=== PATIENT | male | born 2000 | race Native Hawaiian/Other Pacific Islander ===

== ENCOUNTER 2019-09-03 18:00 | Emergency (ER) | payer BC, OTHER ==
[~2019-09-03] VITALS: Ht 182 cm; Wt 110.0 kg
--- NOTE | 2019-09-03 18:56 | ED Integumentary General ---
General Chief Complaint: Laceration Stated Complaint: R HAND LAC Nursing Triage Note: THE PT IS AMBULATORY TO THE ROOM WITHOUT DIFFICULTY. NO DISTRESS IS SEEN ON ARRIVAL. LOC IS NORMAL FOR THE PT. THE PT HAS A LECERATION TO HIS LEFT HAND. Source: patient, other (friend) Exam Limitations: no limitations History of Present Illness Date Seen by Provider: Sep 03, 2019 Time Seen by Provider: 18:56 Initial Comments 19-year-old male patient presents with complaints of a laceration to the right hand. Patient states he was running to the yard playing with a friend's dog when he didn't see the chin link fence. Reports hitting his hand on the chain link fence causing a laceration. Denies any numbness, weakness, or hand pain. Location Injury Occurred: outside friend's home Timing/Duration: just prior to arrival Location: hands (right hand) Possible Cause: other (reports hitting the hand on a chain link fence) Modifying Factors: worse with other (bleeding improved with compression) Allergies and Home Medications Allergies Coded Allergies: No Known Drug Allergies (Unverified , 09/03/19) Patient Home Medication List Home Medication List Reviewed: Yes Review of Systems Review of Systems Constitutional: no symptoms reported Respiratory: no symptoms reported Cardiovascular: no symptoms reported Musculoskeletal: No joint pain, No joint swelling Skin: see HPI, other (laceration to the right hand) Psychiatric/Neurological: Denies Numbness, Denies Paresthesia, Denies Tingling, Denies Weakness All Other Systems Reviewed Negative Unless Noted: Yes (Negative excepted noted.) Past Sflqwwq-Vzjdgw-Grcwyu Hx Past Med/Social Hx: Reviewed Nursing Past Med/Soc Hx Patient Social History Alcohol Use: Occasionally Uses Recreational Drug Use: No Smoking Status: Never a Smoker Recent Foreign Travel: No Contact w/Someone Who Travel: No Recent Infectious Disease Expo: No Immunizations Up To Date Tetanus Booster (TDap): More than 5yrs PED Vaccines UTD: Yes Past Medical History Cardiac: No Neurological: No Gastrointestinal: No Musculoskeletal: No Integumentary: Yes Eczema Family Medical History Reviewed Nursing Family Hx No Pertinent Family Hx Physical Exam Vital Signs Vital Signs - First Documented 09/03/19 18:09 Temp 37.0 Pulse 74 Resp 16 B/P (MAP) 144/82 (102) Capillary Refill : Less Than 3 Seconds General Appearance: WD/WN, no apparent distress Cardiovascular: normal peripheral pulses, regular rate, rhythm, no murmur Respiratory: lungs clear, normal breath sounds, no respiratory distress, no accessory muscle use Extremities: normal range of motion, non-tender, normal capillary refill, other (4 cm laceration involving skin to the right posterior third web spacing (between the third and fourth fingers). Subcutaneous tissue and intact veins are visible in the bed of the wound. ) Neurologic/Psychiatric: no motor/sensory deficits, alert, normal mood/affect, oriented x 3 Skin: normal color, warm/dry, other (4 cm laceration involving skin to the right posterior third web spacing (between the third and fourth fingers). Subcutaneous tissue and intact veins are visible in the bed of the wound. ) Procedures/Interventions Wound Location: Upper Extremities (right hand) Wound Length (cm): 4 Wound's Depth, Shape: superficial, linear Wound Explored: clean Betadine Prep?: Yes (and scrubbed vigorously with chlorhexidine and sterile saline) Anesthesia: 1% Lidocaine Volume Anesthetic (ccs): 2 Suture: Prolene (4-0 Prolene used to reapproximate skin edges), Vicryl (3-0 Vicryl used to reapproximate subcutaneous tissue) Number of Sutures: 6 Layer Closure?: 2 Number Deep Layer Sutures: 2 Sterile Dressing Applied?: Yes Progress Blood loss minimal. Patient tolerated the procedure well. Patient placed in a Colle's aluminum splint. Progress/Results/Core Measures Results/Orders My Orders Orders - ESTEPHANIA MARTINEZ Dipht,Pertuss(Acell),Tet Adult (Boostrix (09/03/19 19:15) Lidocaine 1% Inj 20 Ml (Xylocaine 1% Inj (09/03/19 19:15) Medications Given in ED Current Medications Medications Dose Ordered Sig/Braden Route Start Time Stop Time Status Last Admin Dose Admin Diphtheria/ Tetanus/Acell Pertussis 0.5 ml ONCE ONCE IM 09/03/19 19:15 09/03/19 19:16 DC 09/03/19 19:16 0.5 ML Lidocaine HCl 20 ml ONCE ONCE INJ 09/03/19 19:15 09/03/19 19:16 DC 09/03/19 19:12 20 ML Vital Signs/I&O 09/03/19 18:09 Temp 37.0 Pulse 74 Resp 16 B/P (MAP) 144/82 (102) Blood Pressure Mean: 102 Departure Communication (Admissions) Patient seen, evaluated, and wound repair performed. Plan for discharge to home. Patient to return in 10 days for suture removal. Impression Primary Impression: Laceration of skin of right hand Qualified Codes: S61.411A - Laceration without foreign body of right hand, initial encounter Disposition: HOME, SELF-CARE Condition: Improved Departure-Patient Inst. Decision time for Depature: 19:08 Referrals: NO,LOCAL PHYSICIAN (PCP) Primary Care Physician Patient Instructions: Laceration Repair With Stitches (DC) Add. Discharge Instructions: All discharge instructions reviewed with patient and/or family. Voiced understanding. Tylenol extra strength [id number] as directed for pain. Ibuprofen 800 mg by mouth every 8 hours as needed for pain. Elevate the right hand on pillows. Ice pack for 20 minute intervals as needed. Tomorrow morning you may remove the bandage. Shower with antibacterial soap. Apply triple antibiotic ointment twice daily for 3 days and cover with a bandage. Return to the emergency department in 10 days for suture removal. Follow-up with your family practitioner if needed. Return to the emergency department for redness, fever, drainage, pain, or any other concerns. Images Extremities-Upper 1 - Laceration ESTEPHANIA MARTINEZ Sep 03, 2019 18:56
[2019-09-03] MEDS ORDERED: LIDOCAINE 1% INJ 20 ML 20 ML VIAL INJ ONE (19:15)
[2019-09-03] MEDS ORDERED: TETANUS,DIPTH,PERTUSS P/F (BOOSTRIX) 0.5 ML VIAL IM ONE (19:15)
[2019-09-03 20:13] VITALS: BP 140/80
--- OUTSIDE RECORDS SUMMARY | 2019-09-07 03:27 | XMS REPORT | Continuity of Care Document ---
Author Organization Unknown Address Unknown Phone Unavailable Allergies Active Description Code Type Severity Reaction Onset Reported/Identified Relationship to Patient Clinical Status Yes No Known Drug Allergies [id number] Drug Allergy Unknown N/A 09/03/2019 Medications There is no data. Problems There is no data. Procedures There is no data. Results There is no data. Encounters ACCT No. Visit Date/Time Discharge Status Pt. Type Provider Facility Loc./Unit Complaint [id number] 09/03/2019 18:02:00 020 20:14:00 DIS Emergency ESTEPHANIA MOTA [facility] ER R HAND LAC
== END 2019-09-03 20:14 | disposition home or self-care (01) ==
LOC: ER 18:02
DX: S61.411A Laceration without foreign body of right hand, initial encounter (principal); Z23 Encounter for immunization; W26.8XXA Contact with other sharp object(s), not elsewhere classified, initial encounter
CPT/HCPCS: 90715; 99284